=== PATIENT | male | born 1960 | race Caucasian/White ===

== ENCOUNTER 2018-05-23 12:32 | Outpatient (CLI) | payer OTHER ==
[~2018-05-23] VITALS: Ht 190.5 cm; Wt 136.4 kg
--- NOTE | ~2018-05-23 | HEMODYNAMI ---
PATIENT:GLENIS MERRILL MEDICAL RECORD: [id number] : 58 LOCATION:[facility] ADMISSION DATE: 05/23/18 Generatedon:05/23/201816:07 Patient name: GLENIS MERRILL Patient #: [id number] SSN: : 1960 Date of study: 05/23/2018 Page: Of Hemodynamic Procedure Report Patient Data Patient Demographics Procedure consent was obtained First Name: GLENIS Gender: Male Last Name: DESIRAE : 1960 Patient #: [id number] Age: 57 year(s) Race: Unknown Additional ID: [id number] Contact details Address: [address] [place] [address] State: [place] City: [facility] Zip code: [address] Past Medical History Allergies Allergen Reaction Date Comments Reported Shellfish 05/23/2018 Morphine 05/23/2018 Admission Admission Data Admission Date: 05/23/2018 Admission Time: 12:32 Procedure Procedure Types Cath Procedure Diagnostic Procedure LHC LHC w/Coronaries FFR/IVUS Intra-Coronary IVUS Initial Sedation Charges Moderate Sedation up to 15 minutes PCI Procedure Coronary Stent Coronary Stent Initial Procedure Description Procedure Date Procedure Date: 05/23/2018 Procedure Start Time: 15:44 Procedure End Time: 16:06 Procedure Staff Name Function Ellis Colvin MD Performing Physician Lexi Carver RT Monitor Taylor Felipe RN Nurse Osman Mccloud RT Scrub Procedure Data Cath Procedure Fluoroscopy Diagnostic fluoroscopy Total fluoroscopy Time: 5.2 time: 5.2 min min Diagnostic fluoroscopy Total fluoroscopy dose: dose: 1139 mGy 1139 mGy Contrast Material Contrast Material Type Amount (ml) Isovue 300 96 Entry Location Entry Primary Successful Side Size Upsize Upsize Entry Closure Gutierrez ccessful Closure Location (Fr) 1 (Fr) 2 (Fr) Remarks Device Remarks Radial Right 6 Fr Mechanical artery Short Compression Estimated blood loss: 10 ml Diagnostic catheters Device Type Used For End Catheter Placement DIAGNOSTIC [place] 110cm 5 LV Angiography Fr catheter ([id number]) DIAGNOSTIC [place] 110cm 5 Right Coronary Fr catheter ([id number]) Angiography Procedure Complications No complications Procedure Medications Medication Administration Route Dosage 0.9% NaCl I.V. 100 ml/hr Oxygen etCO2 Nasal cannula 2 l/min Lidocaine 2% added to field 20 Heparin Flush Bag added to field 2 bags (1000units/500ml NS) Radial Cocktail added to field 1 syringe (Verapomil 2mg/Nitro 400mcg/Heparin 1500units) Versed I.V. 2 mg Fentanyl I.V. 50 mcg Versed I.V. 2 mg Fentanyl I.V. 50 mcg Radial Cocktail added to field 1 syringe (Verapomil 2mg/Nitro 400mcg/Heparin 1500units) Radial Cocktail added to field 1 syringe (Verapomil 2mg/Nitro 400mcg/Heparin 1500units) Heparin Bolus I.V. 1000 units Hemodynamics Rest Heart Rate: 58 (bpm) Snapshots Pre Cath Intra NCS Post Cath Vital Signs Time Heart Resp SPO2 etCO2 NIBP (mmHg) Rhythm Pain Sedation Rate (ipm) (%) (mmHg) Status Level (bpm) 15:19:35 57 13 99 25.6 166/95(144) NSR 0 (11) 10(A) , No pain 15:23:57 64 11 98 27.8 155/90(120) NSR 0 (11) 10(A) , No pain 15:28:13 61 11 96 28.6 147/88(133) NSR 0 (11) 10(A) , No pain 15:32:27 58 11 98 32.4 150/93(122) NSR 0 (11) 10(A) , No pain 15:36:43 60 12 97 38 151/88(128) NSR 0 (11) 10(A) , No pain 15:41:03 60 12 98 39.9 150/85(113) NSR 0 (11) 10(A) , No pain 15:45:19 59 15 96 33.1 152/94(126) NSR 0 (11) 10(A) , No pain 15:49:33 65 14 98 33 132/76(106) NSR 0 (11) 9(A) , No pain 15:53:43 67 16 99 10.5 133/80(109) NSR 0 (11) 9(A) , No pain 15:57:55 70 18 97 28.6 123/83(97) NSR 0 (11) 9(A) , No pain 16:02:05 62 18 97 33.2 138/79(106) NSR 0 (11) 10(A) , No pain 16:06:19 58 17 96 33.9 131/86(112) NSR 0 (11) 10(A) , No pain Medications Time Medication Route Dose Verified Delivered Reason Not es Effectiveness by by 15:18:31 0.9% NaCl I.V. 100 Ellis Taylor used for ml/hr Marii Felipe healthcare market consultant 15:18:37 Oxygen etCO2 2 l/min Ellis Taylor used for Nasal Marii Felipe procedure cannula RN 15:18:41 Lidocaine 2% added 20ml Ellis Ellis for local to vial Marii Colvin MD anesthetic field 15:18:46 Heparin Flush added 2 bags Ellis Ellis used for Bag to Marii Colvin MD procedure (1000units/500ml field NS) 15:18:51 Radial Cocktail added 1 Ellis Ellis used for (Verapomil to syringe Marii Colvin MD procedure 2mg/Nitro field 400mcg/Heparin 1500units) 15:41:54 Versed I.V. 2 mg Ellis Taylor for sedation Marii Felipe RN 15:42:00 Fentanyl I.V. 50 mcg Ellis Taylor for sedation Mairi Felipe RN 15:47:27 Versed I.V. 2 mg Ellis Taylor for sedation Marii Felipe RN 15:47:31 Fentanyl I.V. 50 mcg Ellis Taylor for sedation Marii Felipe RN 15:49:59 Radial Cocktail added 1 Ellis Taylor used for (Verapomil to syringe Marii Felipe procedure 2mg/Nitro field RN 400mcg/Heparin 1500units) 15:56:16 Heparin Bolus I.V. 1000 Ellis Taylor for dorota ified units Marii Felipe anticoagulation with Dr. HANNAH Colvin 15:56:17 Radial Cocktail added 1 Ellis Taylor used for (Verapomil to syringe Marii Felipe procedure 2mg/Nitro field RN 400mcg/Heparin 1500units) Procedure Log Time Note 14:27:26 Time tracking: Regular hours (M-F 7:00 - 5:00) 14:27:30 Plan of Care:Hemodynamics will remain stable., Cardiac rhythm will remain stable., Comfort level will be maintained., Respiratory function will remain adequate., Patient/ family verbilizes understanding of procedure., Procedure tolerated without complication., Recovers from procedure without complications.. 15:00:35 Lexi Carver RT(R) sent for patient. Start room use. 15:11:44 Patient received from ED to CCL 2 Alert and oriented. Tansferred to table in Supine position. 15:11:45 Warm blankets applied, and kenan hugger turned on for patient comfort. 15:11:46 Correct patient and procedure confirmed by team. 15::47 Signed procedure consent form obtained from patient. 15::47 ECG and BP/O2 sat monitors applied to patient. 15::48 Pre-procedure instructions explained to patient. 15:11:48 Pre-op teaching completed and patient verbalized understanding. 15:18:21 Vital chart was started 15:18:31 0.9% NaCl 100 ml/hr I.V. was administered by Taylor Felipe RN; used for procedure; 15:18:37 Oxygen 2 l/min etCO2 Nasal cannula was administered by Taylor Felipe RN; used for procedure; 15:18:41 Lidocaine 2% 20ml vial added to field was administered by Ellis Colvin MD; for local anesthetic; 15:18:46 Heparin Flush Bag (1000units/500ml NS) 2 bags added to field was administered by Ellis Colvin MD; used for procedure; 15:18:51 Radial Cocktail (Verapomil 2mg/Nitro 400mcg/Heparin 1500units) 1 syringe added to field was administered by Ellis Colvin MD; used for procedure; 15:22:32 Baseline sample Acquired. 15:22:35 Rhythm: sinus bradycardia 15:22:37 Full Disclosure recording started 15:22:42 H&P Date Dictated: 05/23/2018 ER History on chart.. 15:22:45 Family in waiting room. 15:22:46 Patient NPO since Midnight. 15:22:51 Patient allergic to Shellfish 15:23:00 Patient allergic to Morphine 15:23:08 Is the patient allergic to Iodine/contrast media? Yes. 15:23:09 Was the patient premedicated? Yes 15:23:10 Is patient on blood thinner?No 15:23:12 Patient diabetic? Yes. 15:23:13 If diabetic: On Metformin? No 15:23:16 Previous problem with sedation/anesthesia? No ? 15:23:16 Snore? Yes 15:23:17 Sleep apnea? No 15:23:18 Deviated septum? No 15:23:19 Opens mouth fully? Yes 15:23:20 Sticks out tongue? Yes 15:23:21 Airway obstruction? No ? 15:23:23 Dentures? No ? 15:23:25 Pre procedure: right dorsailis pedis pulse 2+ Normal; easily identifiable; not easily obliterated 15:23:27 Modified Jordan's test Ulnar < 7 seconds 15:23:28 Patient pain scale 0/10 ?. 15:23:36 IV patent on arrival in left antecubital with 0.9% NaCl at [facility]. 15:23:38 Lab results completed and on chart. 15:23:41 Right Radial & Right Groin area was prepped with chlora-prep and draped in sterile fashion 15:23:43 Alarms reviewed by R. N. 15:23:43 Sharps counted by scrub and verified by R.N. 15:23:47 Use device set Radial Dx or PCI 15:23:48 ACIST Syringe (56090) opened to sterile field. 15:23:48 Medline Cath Pack ([id number]) opened to sterile field. 15:23:49 Bag Decanter (2002S) opened to sterile field. 15:23:49 DIAGNOSTIC WIRE .035 260cm J wire (390181) opened to sterile field. 15:23:49 ACIST Hand Control (06643) opened to sterile field. 15:23:50 ACIST Manifold (03519) opened to sterile field. 15:23:50 Tegaderm 4 x 4 (1626W) opened to sterile field. 15:23:51 MBrace Wrist Support ([id number]) opened to sterile field. 15:23:52 SHEATH 6FR Slender (801060) opened to sterile field. 15:29:31 Zero performed for pressure channel P1 15:30:23 Physician paged 15:41:20 Final Timeout: patient, procedure, and site verified with staff and physician. All members of the team are in agreement. 15:41:22 Right Radial & Right Groin site verified by team. 15:41:25 Maximum allowable Isovue 300 dose 300ml. Physician notified. (300ml for normal creatinines. For patients with creatinine of 1.7 or higher multiply weight(kg) x 5 divided by creatinine.) 15:41:28 Fire Safety Assessment: A--An alcohol-based skin anteseptic being used preoperatively., C--Open oxygen or nitrous oxide is being used., D--An ESU, laser, or fiber-optic light is being used. 15:41:31 Physical assessment completed. ASA score P 2 - A patient with mild systemic disease as per Ellis Colvin MD. 15:41:34 Sedation plan: IV Moderate Sedation Medication:Versed, Fentanyl 15:41:54 Versed 2 mg I.V. was administered by Taylor Felipe RN; for sedation; 15:42:00 Fentanyl 50 mcg I.V. was administered by Taylor Felipe RN; for sedation; 15:43:31 Procedure started. 15:44:36 Local anesthetic to right radial artery with Lidocaine 2% by Ellis Colvin MD.INITIAL ACCESS ONLY 15:45:59 A 6 Fr Short sheath was inserted into the Right Radial artery 15:46:32 A DIAGNOSTIC [place] 110cm 5 Fr catheter (160652) was advanced over the wire and used for LV Angiography. 15:47:18 LV gram done using MANN 15:47:27 Versed 2 mg I.V. was administered by Taylor Felipe RN; for sedation; 15:47:27 LV hemodynamics recorded. 15:47:29 Injector settings: Ml/sec: 5, Volume: 15, 15:47:31 Fentanyl 50 mcg I.V. was administered by Taylor Felipe RN; for sedation; 15:47:34 EF : 55 % 15:48:29 A DIAGNOSTIC [place] 110cm 5 Fr catheter (430878) was advanced over the wire and used for Right Coronary Angiography. 15:48:42 Catheter removed. 15:48:48 Use device set [facility] PCI 15:48:56 INFLATOR Merit BasixCompak (GE1728) opened to sterile field. 15:49:08 CHOICE PT Extra Support 182cm wire ([id number]) opened to sterile field. 15:49:59 Radial Cocktail (Verapomil 2mg/Nitro 400mcg/Heparin 1500units) 1 syringe added to field was administered by Taylor Felipe RN; used for procedure; 15:50:49 6 Fr XB 3.5 guide catheter was inserted over the wire 15:50:58 GUIDE 6FR XB 3.5 catheter ([id number]) opened to sterile field. 15:51:27 Guide Catheter removed. unable to cannulate vessel. 15:52:10 GUIDE 6FR XBC 3 (33269572) opened to sterile field. 15:52:20 6 Fr XBC 3 guide catheter was inserted over the wire 15:53:47 LCA angiography performed. 15:54:17 Guide catheter removed. 15:54:27 GUIDE 6FR AR 2.0 catheter ([id number]) opened to sterile field. 15:56:16 Heparin Bolus 1000 units I.V. was administered by Taylor Felipe RN; for anticoagulation; verified with Dr. Colvin 15:56:17 Radial Cocktail (Verapomil 2mg/Nitro 400mcg/Heparin 1500units) 1 syringe added to field was administered by Taylor Felipe RN; used for procedure; 15:56:28 6 Fr AR 1.0 guide catheter was inserted over the wire 15:57:23 CHOICE PT ES wire advanced. 15:57:48 IVUS catheter advanced over wire. 15:57:54 IVUS pass to RCA lesion performed. 15:59:27 IVUS catheter removed over wire. 16:01:59 Place stent Inflation Number: 1 A INTEGRITY 4.0 x 18 stent ([id number]) was prepped and advanced across the Mid RCA. The stent was deployed at 11 JED for 0:08 (min:sec). 16:02:19 Stent catheter was removed intact over wire. 16:02:19 Wire removed. 16:02:20 Guide catheter removed. 16:02:29 Sheath removed intact; hemostasis achieved with Mechanical Compression to the Right Radial artery. 16:02:31 Procedure ended.(Physican Out) 16:02:45 Fluoroscopy time 05.20 minutes. 16:02:48 Fluoroscopy dose: 1139 mGy 16:02:48 Flurop Dose total: 1139 16:02:51 Contrast amount:Isovue 300 96ml. 16:02:52 Sharps counted by scrub and verified by R.N. 16:02:54 TR band inflated with 10cc of air. 16:02:55 Insertion/operative site no bleeding no hematoma. 16:03:03 Post right radial artery:stable, clean and dry 16:03:09 Post Procedure Pulses reassessed and unchanged 16:03:11 Post-procedure physical assessment completed. ASA score P 2 - A patient with mild systemic disease as per Ellis Colvin MD. 16:03:13 Post procedure rhythm: unchanged. 16:03:15 Estimated blood loss: 10 ml 16:03:19 TR BAND Large ([id number]) opened to sterile field. 16:03:22 Post procedure instruction explained to patient.Patient verbalizes understanding. 16:03:22 Patient needs reinforcement of post procedure teaching. 16:03:51 Procedure type changed to Cath procedure, Diagnostic procedure, LHC, LHC w/Coronaries, FFR/IVUS, Intra-Coronary IVUS Initial, Sedation Charges, Moderate Sedation up to 15 minutes, PCI procedure, Coronary Stent, Coronary Stent Initial 16:05:14 Procedure Complication : No complications 16:05:16 See physician's report for complete and final results. 16:06:01 Procedure and supply charges have been captured, reviewed, submitted and are correct. 16:06:02 Vital chart was stopped 16:06:03 Report given to Pre/Post Procedure Room. 16:06:17 Patient transfered to Pre/Post Procedure Room with Stretcher. 16:06:20 Procedure ended. 16:06:20 Full Disclosure recording stopped 16:06:23 End room use (Document Last) Intervention Summary Intervention Notes Time ActionType Lesion and Equipment Action# Pressure Duration Attributes Used 16:01:59 Place stent Mid RCA INTEGRITY 1 11 00:08 4.0 x 18 stent ([id number]) Device Usage Item Name Manufacture Quantity Catalog Number Hospital Part Current Mini mal Lot# / Charge Number Stock Stock Serial# Code ACIST Acist 1 65932 885248 915528 730870 20 Syringe TalkSession (65925) Systems Inc Medline Cath Medline 1 [id number] 334577 14590 235096 5 Pack ([id number]) Bag Decanter Microtek 1 821619 04787 056791 5 () Medical Inc. DIAGNOSTIC [place] 1 721531 800769 889743 794622 30 WIRE .035 260cm J wire (225565) ACIST Hand Acist 1 93540 333495 189658 680755 5 Control Medical (28405) Systems Inc ACIST Acist 1 74012 653312 207938 098871 5 Manifold Medical (57543) Systems Inc Tegaderm 4 x 3M 1 1626W 153369 542005 016319 5 4 (1626W) MBrace Wrist Advanced 1 140-0250-00 203163 50753 894925 5 Support Vascular ([id number]) Dynamics SHEATH 6FR Terumo 1 [id number] 128398 048024 109547 5 Slender (80-1060) DIAGNOSTIC Terumo 1 40-5013 928470 092408 865356 5 [place] 110cm 5 Fr catheter (681166) INFLATOR Merit 1 SN6721 017823 137831 341796 15 [employer] Works Now Medical BasixCompak (ED9680) CHOICE PT [place] 1 [id number] 985316 870462 725416 5 Extra Scientific Support 182cm wire ([id number]) GUIDE 6FR XB Cardinal 1 [id number] 553510 318686 354782 2 3.5 catheter Health (68900769) GUIDE 6FR Cardinal 1 [id number] 544048 69865 797467 5 XBC 3 Health (12376086) GUIDE 6FR AR Medtronic 1 [id number] 574064 50612 226886 1 2.0 catheter (EC5CZ52) INTEGRITY Medtronic 1 [id number] 909690 050663 037334 5 [id number] 4.0 x 18 stent ([id number]) TR BAND Terumo 1 [id number] 568526 136099 829919 40 Large ([id number]) Signature Audit [place] Stage Time Signature Unsigned Intra-Procedure 05/23/2018 Lexi 4:06:56 PM Counts RT(R) Signatures Monitor : Lexi Signature : Counts RT Date : Time : [facility] [address] [place] [address]
--- NOTE | ~2018-05-23 | OP ---
PATIENT NAME: GLENIS MERRILL MEDICAL RECORD: [id number] :58 LOCATION:RC [facility]02 ADMISSION DATE: SURGEON: BHAVESH CORNELIUS MD DATE OF OPERATION: 05/23/2018 PROCEDURES: 1. PTCA and stent, RCA. 2. Intravascular ultrasound. 3. Left heart catheterization. 4. Selective coronary angiography. 5. Left ventriculogram. INDICATION: Angina and coronary artery disease. DESCRIPTION OF PROCEDURE: After informed consent was obtained with detailed description of risks and benefits as well as alternative therapies, the patient elected to proceed with angiogram and angioplasty. The right radial area was prepped and draped in normal sterile fashion. The right radial artery was cannulated via modified Seldinger technique with placement of 6-Kyrgyz sheath. All catheters were exchanged through this sheath. FINDINGS: Left ventriculogram performed in standard 30-degree MANN view reveals good cardiac wall motion throughout all segments. Overall ejection fraction 55% to 60%. SELECTIVE CORONARY ANGIOGRAPHY: 1. Left main is with no significant angiographic disease. 2. Left anterior descending has questionable stenosis of significance in the mid vessel, better delineated by intravascular ultrasound or FFR. 3. Left circumflex has 75% stenosis in the mid vessel. 4. Right coronary has 70% stenosis in the mid vessel, confirmed by intravascular ultrasound. PTCA AND STENT OF THE RCA: Stent used was 4.0 x 18-mm Integrity. Result was 0% residual stenosis. OVERALL IMPRESSION: Successful PTCA and stent of the RCA, going from 70% initial stenosis to 0% residual. PLAN: Plan for PTCA and stent of the left circumflex in the near future. TRANSINT:[id number] Voice Confirmation ID: [id number] DOCUMENT ID: [id number] BHAVESH CORNELIUS MD CC: [id number] DICTATION DATE: 05/23/18 1609 LITIGATION SECRETARY: 05/23/18 1817 [facility] [address] [place] [address]
[2018-05-23 12:39] VITALS: Ht 190.5 cm; Wt 136.4 kg
[2018-05-23] MEDS ORDERED: ZETIA10 MG PO (12:40)
[2018-05-23] MEDS ORDERED: HYDROCODON-ACE1 EA10 PO (12:41)
[2018-05-23] MEDS ORDERED: XELJANZ5 MG PO (12:41)
[2018-05-23] MEDS ORDERED: CYMBALTA30 MG PO (12:42)
[2018-05-23] MEDS ORDERED: CYMBALTA60 MG PO (12:42)
[2018-05-23] MEDS ORDERED: CYCLOBENZAPRINE10 MG PO (12:42)
[2018-05-23] MEDS ORDERED: BAYER CHEWABLE81 MG PO (12:44)
[2018-05-23] MEDS ORDERED: TIROSINT125 MCG PO (12:49)
[2018-05-23] MEDS ORDERED: VALIUM 2 MG TAB2 MG PO (12:49)
[2018-05-23 13:29] LABS: BASOPHILS 0.3 % (0-2); EOSINOPHILS 0.6 % (0-7); HEMATOCRIT 40.3 % (42.0-54.0); HEMOGLOBIN 13.9 g/dL (13.5-17.5); IMMATURE GRANULOCYTES 0.4 % (0-5); LYMPHOCYTES 20.1 % (15-50); MCH 32.6 pg (26.0-34.0); MCHC 34.5 g/dL (31.0-37.0); MCV 94.4 fL (80.0-100.0); MEAN PLATELET VOLUME 11.9 fL (7.4-10.4); MONOCYTES 6.4 % (2-11); NEUTROPHILS 72.2 % (40-80); PLATELET COUNT 140 10x3/uL (130-400); RBC 4.27 10x6/uL (4.20-6.10); RDW 14.2 % (11.5-14.5); WBC 9.7 10x3/uL (4.8-10.8)
[2018-05-23 13:45] LABS: ALBUMIN 3.9 g/dL (3.4-5.0); ALKALINE PHOSPHATASE 40 U/L (46-116); ALT (SGPT) 53 U/L (10-68); CALC OSMOLALITY 286 mosm/kg (275-300); CALCIUM 8.3 mg/dL (8.5-10.1); CARBON DIOXIDE 25.4 mmol/L (21.0-32.0); CHLORIDE - SERUM 104 mmol/L (98-107); CREATININE - SERUM 0.9 mg/dL (0.6-1.3); GLUCOSE 125 mg/dL (74-106); POTASSIUM - SERUM 3.8 mmol/L (3.5-5.1); PROTEIN - SERUM 6.8 g/dL (6.4-8.2); SODIUM 142 mmol/L (136-145); UREA NITROGEN 20 mg/dL (7-18); eGFR NON AFRICAN AMERICAN > 90 mL/min (90-120)
[2018-05-23 13:54] LABS: CKMB 5.9 U/L (0.0-3.6); CREATINE KINASE 200 UL (21-232); PRO BNP 314 pg/mL (0-125); TROPONIN-I 0.017 ng/mL (0.000-0.060)
[2018-05-23 15:08] VITALS: BP 141/99
--- NOTE | 2018-05-23 16:06 | CN ---
PATIENT NAME:GLENIS MERRILL MEDICAL RECORD: [id number] : 58 LOCATION:D.CAT ADMIT DATE: ACCOUNT: [id number] CONSULTING PHYSICIAN: BHAVESH CORNELIUS MD REFERRING PHYSICIAN: BHAVESH CORNELIUS MD DATE OF CONSULTATION: 05/23/2018 ADMITTING DIAGNOSES: 1. Angina. 2. Coronary artery disease. 3. Hyperlipidemia. HISTORY OF PRESENT ILLNESS: This is a gentleman with a past history of cardiac catheterization in 2005. At that time, he was told he had mild coronary disease who now presents with chest pain. He has felt short of breath all weekend. The chest pain that started today is going to his jaw. The jaw pain is actually up to a 10/10, chest pain is at a 5/10. He has no acute ST-T abnormalities on his EKG. PHYSICAL EXAMINATION: GENERAL APPEARANCE: Well-nourished, well-developed, appears stated age. Level of distress, comfortable. PSYCHIATRIC: Mental status, alert, normal affect. Orientation, oriented to time, place and person. EYES: Lids and conjunctiva, noninjected. No discharge, no pallor. ENT: Lips, teeth, gums, normal dentition. Oropharynx, no cyanosis, no pallor. NECK: Carotid arteries, bilateral normal upstroke, no bruits, no thrills. JUGULAR VEINS: No jugular venous pressure or distention. CERVICAL LYMPH NODES: Nontender, nonenlarged. THYROID: Not enlarged. Nontender. No nodules. LUNGS: Respiratory effort, unlabored. CHEST: Normal curvature. No thoracic deformity. No chest wall tenderness. Percussion, resonant. Auscultation, clear. No wheezes, no rales, no rhonchi. CARDIOVASCULAR: Precordial exam, nondisplaced. No heaves or pericardial thrills. Rate and rhythm, regular. Heart sounds, normal S1, normal S2. No S3, no gallop, no rub. Systolic murmur, not heard. Diastolic murmur, not heard. EXTREMITIES: No cyanosis, no edema. Peripheral pulses, full and equal in all extremities, except as noted. No bruits appreciated. ABDOMEN: Soft, nondistended. Normal aorta. No bruit. Nontender. No masses. Liver, nontender, no hepatomegaly. Spleen, nontender, no splenomegaly. MUSCULOSKELETAL: No joint tenderness. No joint swelling. No erythema. NEUROLOGICAL: Normal gait, normal strength, normal tone. SKIN: Warm and dry. OVERALL IMPRESSION: Chest pain compatible with angina, most likely this is hemodynamically significant coronary artery disease. We will proceed with coronary angiography later this afternoon premedicated with contrast allergy. TRANSINT:[id number] Voice Confirmation ID: [id number] DOCUMENT ID: [id number] CONSULT REPORT [id number] GLENIS MERRILL, BHAVESH TAPIA at 1606 CC: [id number] DICTATION DATE: 05/23/18 1304 REGISTERED DENTAL ASSISTANT RDA: 05/23/18 1316 REG [facility] [address] [place] [address]
[2018-05-23] MEDS ORDERED: PLAVIX75 MG PO (16:24)
== END 2018-05-23 19:58 | disposition home or self-care (01) ==
LOC: D.ER 12:32 → D.CATH 12:32 → EDSTATUS 14:00 → D.CLR 16:20 → D.CATH 19:58
PROVIDERS: Family Medicine; ATTEND Internal Medicine Interventional Cardiology
DX: I25.119 Atherosclerotic heart disease of native coronary artery with unspecified angina pectoris (principal); E78.5 Hyperlipidemia, unspecified; Z01.812 Encounter for preprocedural laboratory examination

== ENCOUNTER 2018-05-25 07:56 | Outpatient (CLI) | payer OTHER ==
[~2018-05-25] VITALS: Ht 190.5 cm; Wt 136.4 kg
--- NOTE | ~2018-05-25 | HEMODYNAMI ---
PATIENT:GLENIS MERRILL MEDICAL RECORD: [id number] : 58 LOCATION:[facility] ADMISSION DATE: 05/25/18 Generatedon:05/25/20189:58 Patient name: GLENIS MERRILL Patient #: [id number] SSN: : 1960 Date of study: 05/25/2018 Page: Of Hemodynamic Procedure Report Patient Data Patient Demographics Procedure consent was obtained First Name: GLENIS Gender: Male Last Name: DESIRAE : 1960 Middle Initial: NEREYDA Viramontes Age: 57 year(s) Patient #: [id number] Race: Unknown Additional ID: [id number] Contact details Address: [address] [place] [address] State: [place] City: [facility] Zip code: [address] Past Medical History Allergies Allergen Reaction Date Comments Reported Shellfish 05/23/2018 Morphine 05/23/2018 Other allergy 05/25/2018 SHELLFISH, IV DYE, MORPHINE Admission Admission Data Admission Date: 05/25/2018 Admission Time: 7:56 Lab Results Lab Result Date: 05/25/2018 Lab Result Time: 0:00 Biochemistry Name Units Result Min Max BUN mg/dl 22 --(----)-* 7 18 Creatinine mg/dl 0.9 --(-*--)-- 0.6 1.3 CBC Name Units Result Min Max Hematocrit % 40.5 -*(----)-- 42 54 Hemoglobin g/dl 14.1 --(*---)-- 13.5 17.5 Procedure Procedure Types Cath Procedure Diagnostic Procedure FFR/IVUS Intra-Coronary IVUS Initial Intra-Coronary IVUS Additional PCI Procedure Coronary Stent Coronary Stent Initial x2 Procedure Description Procedure Date Procedure Date: 05/25/2018 Procedure Start Time: 9:39 Procedure End Time: 9:56 Procedure Staff Name Function Ellis Colvin MD Performing Physician Evy Barr RT Monitor Shady Natarajan RT Scrub Taylor Felipe RN Nurse Hernan Schwartz RN Mining Engineer Procedure Data Cath Procedure Fluoroscopy Diagnostic fluoroscopy Total fluoroscopy Time: 4.6 time: 4.6 min min Diagnostic fluoroscopy Total fluoroscopy dose: 571 dose: 571 mGy mGy Contrast Material Contrast Material Type Amount (ml) Isovue 300 122 Entry Location Entry Primary Successful Side Size Upsize Upsize Entry Closure Succes sful Closure Location (Fr) 1 (Fr) 2 (Fr) Remarks Device Remarks Femoral Right 6 Fr Exoseal artery Short Estimated blood loss: 10 ml Procedure Complications No complications Procedure Medications Medication Administration Route Dosage 0.9% NaCl I.V. 100 ml/hr Oxygen etCO2 Nasal cannula 2 l/min Lidocaine 2% added to field 20 Heparin Flush Bag added to field 2 bags (1000units/500ml NS) Versed I.V. 2 mg Fentanyl I.V. 50 mcg Versed I.V. 2 mg Fentanyl I.V. 50 mcg Heparin Bolus I.V. 4000 units Versed I.V. 2 mg Fentanyl I.V. 50 mcg Hemodynamics Rest Pre Cath Intra NCS Post Cath Vital Signs Time Heart Resp SPO2 etCO2 NIBP (mmHg) Rhythm Pain Sedation Rate (ipm) (%) (mmHg) Status Level (bpm) 9:11:36 53 16 98 31 163/96(148) SB 0 (11) 10(A) , No pain 9:16:03 55 16 100 34.1 172/99(144) SB 0 (11) 10(A) , No pain 9:20:23 52 16 97 34.1 157/95(135) SB 0 (11) 10(A) , No pain 9:24:47 54 18 97 34.9 159/95(138) SB 0 (11) 10(A) , No pain 9:29:11 57 10 95 38.6 162/96(135) SB 0 (11) 10(A) , No pain 9:33:38 55 11 98 34.9 159/100(137) SB 0 (11) 10(A) , No pain 9:38:04 64 10 98 40.2 170/103(140) NSR 0 (11) 10(A) , No pain 9:42:32 58 12 97 44 165/95(111) SB 0 (11) 10(A) , No pain 9:47:01 73 13 96 40.7 173/103(144) NSR 0 (11) 9(A) , No pain 9:51:33 72 18 97 25.7 173/101(134) NSR 0 (11) 10(A) , No pain 9:56:05 70 11 97 37.2 168/101(137) NSR 0 (11) 10(A) , No pain Medications Time Medication Route Dose Verified Delivered Reason Notes Effectiveness by by 9:21:39 0.9% NaCl I.V. 100 Ellis Taylor used for ml/hr Marii Felipe retail sales manager 9:22:11 Oxygen etCO2 2 Ellis Taylor used for Nasal l/min Marii Felipe procedure cannula RN 9:22:21 Lidocaine 2% added 20ml Ellis Ellis for local to vial Marii Colvin MD anesthetic field 9:22:27 Heparin Flush added 2 Ellis Ellis used for Bag to bags Marii Colvin MD procedure (1000units/500ml field NS) 9:35:50 Versed I.V. 2 mg Ellis Taylor for sedation Marii Felipe RN 9:35:55 Fentanyl I.V. 50 Ellis Taylor for sedation mcg Marii Felipe RN 9:40:01 Versed I.V. 2 mg Ellis Taylor for sedation Marii Felipe RN 9:40:04 Fentanyl I.V. 50 Ellis Taylor for sedation mcg Marii Felipe RN 9:44:44 Heparin Bolus I.V. 4000 Ellis Taylor for verifi ed units Marii Felipe anticoagulation with Dr HANNAH Colvin 9:45:05 Versed I.V. 2 mg Ellis Taylor for sedation Marii Felipe RN 9:45:09 Fentanyl I.V. 50 Ellis Taylor for sedation mcg Marii Felipe RN Procedure Log Time Note 8:55:41 Hernan Schwartz RN sent for patient. Start room use. 9:02:42 Diagnostic Cath status Elective 9:02:42 Time tracking: Regular hours (M-F 7:00 - 5:00) 9:02:46 Plan of Care:Hemodynamics will remain stable., Cardiac rhythm will remain stable., Comfort level will be maintained., Respiratory function will remain adequate., Patient/ family verbilizes understanding of procedure., Procedure tolerated without complication., Recovers from procedure without complications.. 9:02:47 Signed procedure consent form obtained from patient. 9:04:08 Patient received from Pre/Post Procedure Room to CCL 1 Alert and oriented. Tansferred to table in Supine position. 9:04:09 Warm blankets applied, and kenan hugger turned on for patient comfort. 9:04:10 Correct patient and procedure confirmed by team. 9:04:11 ECG and BP/O2 sat monitors applied to patient. 9:10:23 Vital chart was started 9:10:33 Rhythm: sinus bradycardia 9:10:34 Full Disclosure recording started 9:10:36 Pre-procedure instructions explained to patient. 9:10:36 Pre-op teaching completed and patient verbalized understanding. 9:10:38 Family in patients room. 9:10:39 Patient NPO since Midnight. 9:11:02 Patient allergic to Other allergySHELLFISH, IV DYE, MORPHINE 9:11:04 Is the patient allergic to Iodine/contrast media? Yes. 9:11:05 Is patient on blood thinner?Yes 9:11:08 ACC The patient was administered the following blood thiners within the last 24 hours: ACCPlavix 9:11:11 Patient diabetic? Yes. 9:11:12 If diabetic: On Metformin? No 9:11:15 Previous problem with sedation/anesthesia? No ? 9:11:15 Snore? Yes 9:11:31 Sleep apnea? No 9:11:32 Deviated septum? No 9:11:33 Opens mouth fully? Yes 9:11:33 Sticks out tongue? Yes 9:11:35 Airway obstruction? No ? 9:11:37 Dentures? No ? 9:11:40 Pre procedure: right dorsailis pedis pulse 2+ Normal; easily identifiable; not easily obliterated 9:11:44 Patient pain scale 0/10 ?. 9:11:47 IV patent on arrival in left hand with 0.9% NaCl at KVO. 9:12:26 Lab results completed and on chart. 9:12:29 Right groin area was prepped with chlora-prep and draped in sterile fashion 9:12:35 Alarms reviewed by R. N. 9:12:35 Sharps counted by scrub and verified by R.N. 9:13:08 Lab Result : BUN 22 mg/dl 9:13:08 Lab Result : Creatinine 0.9 mg/dl 9:13:08 Lab Result : Hemoglobin 14.1 g/dl 9:13:08 Lab Result : Hematocrit 40.5 % 9:13:15 Use device set CATH PACK 9:13:16 ACIST Syringe (17906) opened to sterile field. 9:13:16 ACIST Hand Control (78868) opened to sterile field. 9:13:17 ACIST Manifold (77987) opened to sterile field. 9:13:17 Medline Cath Pack ([id number]) opened to sterile field. 9:13:17 Bag Decanter (2002S) opened to sterile field. 9:13:18 DIAGNOSTIC WIRE .035 260cm J wire (303735) opened to sterile field. 9:13:43 SHEATH 6FR [place] (LAK115) opened to sterile field. 9:13:43 INFLATOR Merit BasixCompak ([id number]) opened to sterile field. 9:13:43 CHOICE PT Extra Support 182cm wire ([id number]) opened to sterile field. 9:13:44 [place] IVUS Catheter (42281Z) opened to sterile field. 9:13:44 GUIDE 6FR XBLAD 4.0 catheter ([id number]) opened to sterile field. 9:21:39 0.9% NaCl 100 ml/hr I.V. was administered by Taylor Felipe RN; used for procedure; 9:22:11 Oxygen 2 l/min etCO2 Nasal cannula was administered by Taylor Felipe RN; used for procedure; 9:22:21 Lidocaine 2% 20ml vial added to field was administered by Ellis Colvin MD; for local anesthetic; 9:22:27 Heparin Flush Bag (1000units/500ml NS) 2 bags added to field was administered by Ellis Colvin MD; used for procedure; 9:35:27 H&P Date Dictated: 05/25/2018 New H&P dictated by physician.. 9:35:30 --------ALL STOP TIME OUT------ 9:35:30 Final Timeout: patient, procedure, and site verified with staff and physician. All members of the team are in agreement. 9:35:32 Right groin site verified by team. 9:35:35 Maximum allowable Isovue 300 dose 300ml. Physician notified. (300ml for normal creatinines. For patients with creatinine of 1.7 or higher multiply weight(kg) x 5 divided by creatinine.) 9:35:38 Fire Safety Assessment: A--An alcohol-based skin anteseptic being used preoperatively., C--Open oxygen or nitrous oxide is being used., D--An ESU, laser, or fiber-optic light is being used. 9:35:46 Physical assessment completed. ASA score P 2 - A patient with mild systemic disease as per Ellis Colvin MD. 9:35:48 Sedation plan: IV Moderate Sedation Medication:Versed, Fentanyl 9:35:50 Versed 2 mg I.V. was administered by Taylor Felipe RN; for sedation; 9:35:52 Zero performed for pressure channel P1 9:35:55 Fentanyl 50 mcg I.V. was administered by Taylor Felipe RN; for sedation; 9:39:41 Procedure started. 9:39:46 Local anesthetic to right femoral artery with Lidocaine 2% by Ellis Colvin MD.INITIAL ACCESS ONLY 9:40:01 Versed 2 mg I.V. was administered by Taylor Felipe RN; for sedation; 9:40:04 Fentanyl 50 mcg I.V. was administered by Taylor Felipe RN; for sedation; 9:41:05 A 6 Fr Short sheath was inserted into the Right Femoral artery 9:42:08 6 Fr XBLAD 4 guide catheter was inserted over the wire 9:43:25 CHOICE ES 182 wire advanced. 9:43:42 Wire advanced across lesion. 9:44:44 Heparin Bolus 4000 units I.V. was administered by Taylor Felipe RN; for anticoagulation; verified with Dr Colvin 9:45:05 Versed 2 mg I.V. was administered by Taylor Felipe RN; for sedation; 9:45:09 Fentanyl 50 mcg I.V. was administered by Taylor Felipe RN; for sedation; 9:45:26 IVUS catheter advanced over wire. 9:45:28 IVUS pass to LAD lesion performed. 9:45:29 IVUS catheter removed over wire. 9:46:58 Inflate balloon Inflation number: 1 A INTEGRITY RX 2.5 x 18 stent ([id number]) was prepped and advanced across the Mid LAD, then inflated to 17 JED for 0:10 (min:sec). 9:47:14 Stent catheter was removed intact over wire. 9:47:20 Wire redirected to CIRC. 9:48:08 IVUS catheter advanced over wire. 9:48:11 IVUS pass to Circ lesion performed. 9:48:49 IVUS catheter removed over wire. 9:51:37 Place stent Inflation Number: 1 A INTEGRITY RX 3.5 x 30 stent ([id number]) was prepped and advanced across the Mid CX. The stent was deployed at 11 JED for 0:10 (min:sec). 9:51:46 Stent catheter was removed intact over wire. 9:51:46 Wire removed. 9:51:47 Guide catheter removed. 9:51:54 EXOSEAL 6Fr (EX600) opened to sterile field. 9:52:12 Sheath removed intact; hemostasis achieved with Exoseal to the Right Femoral artery. 9:52:22 Procedure ended.(Physican Out) 9:54:10 Fluoroscopy time 04.60 minutes. 9:54:13 Fluoroscopy dose: 571 mGy 9:54:26 Flurop Dose total: 571 9:54:30 Contrast amount:Isovue 300 122ml. 9:54:32 Sharps counted by scrub and verified by R.N. 9:54:34 Post-op/insertion site Right Femoral artery dressed using a 4 x 4 and Tegaderm. 9:54:36 Post-procedure physical assessment completed. ASA score P 2 - A patient with mild systemic disease as per Ellis Colvin MD. 9:54:41 Post procedure rhythm: sinus rhythm 9:54:44 Estimated blood loss: 10 ml 9:54:57 Post procedure instruction explained to patient.Patient verbalizes understanding. 9:54:57 Patient needs reinforcement of post procedure teaching. 9:55:21 Procedure type changed to Cath procedure, Diagnostic procedure, FFR/IVUS, Intra-Coronary IVUS Initial, Intra-Coronary IVUS Additional, PCI procedure, Coronary Stent, Coronary Stent Initial x2 9:56:21 Procedure and supply charges have been captured, reviewed, submitted and are correct. 9:56:26 Procedure Complication : No complications 9:56:28 Vital chart was stopped 9:56:28 See physician's report for complete and final results. 9:56:30 Report given to Pre/Post Procedure Room. 9:56:32 Patient transfered to Pre/Post Procedure Room with Bed. 9:56:34 Procedure ended. 9:56:34 Full Disclosure recording stopped 9:56:37 End room use (Document Last) Intervention Summary Intervention Notes Time ActionType Lesion and Equipment Action# Pressure Duration Attributes Used 9:46:58 Inflate Mid LAD INTEGRITY RX 1 17 00:10 balloon 2.5 x 18 stent ([id number]) 9:51:37 Place stent Mid CX INTEGRITY RX 1 11 00:10 3.5 x 30 stent ([id number]) Device Usage Item Name Manufacture Quantity Catalog Number Hospital Part Current Mini mal Lot# / Charge Number Stock Stock Serial# Code ACIST Acist 1 85707 821048 849958 996676 20 Syringe Medical (31897) Systems Inc ACIST Hand Acist 1 45843 063401 244813 062266 5 Control Medical (71082) Systems Inc ACIST Acist 1 21137 199572 497986 269930 5 Manifold Medical (14488) Systems Inc Medline Cath Medline 1 [id number] 119070 44916 899123 5 Pack ([id number]) Bag Decanter Microtek 1 2001S 691650 09632 203186 5 (2001S) Medical Inc. DIAGNOSTIC [place] 1 447362 221340 540110 892437 30 WIRE .035 260cm J wire (100191) SHEATH 6FR [place]um[place] 1 TCR315 909626 422276 285711 40 [place] (JBZ614) INFLATOR Merit 1 DW8697 546648 334487 488080 15 [facility] Medical BasixCompak (TY3283) CHOICE PT [place] 1 [id number] 118201 635069 267335 5 Extra Scientific Support 182cm wire ([id number]) [place] 1 52780Y 037845 549922 721495 8 [place] IVUS Catheter (69346R) GUIDE 6FR Cardinal 1 [id number] 430391 774187 291875 3 XBLAD 4.0 Health catheter (46343928) INTEGRITY RX Medtronic 1 [id number] 589220 272133 341590 5 [id number] 2.5 x 18 stent ([id number]) INTEGRITY RX Medtronic 1 [id number] 535120 511273 243358 5 [id number] 3.5 x 30 stent ([id number]) EXOSEAL 6Fr Cardinal 1 EX600 013895 921062 307376 10 (EX600) Health Signature Audit [place] Stage Time Signature Unsigned Intra-Procedure 05/25/2018 Evy Barr 9:57:57 AM RT(R) Signatures Monitor : Evy Barr Signature : RT Date : Time : [id number] [place] [address]
[~2018-05-25 07:56] MED LIST: BAYER CHEWABLE81 MG PO; CYCLOBENZAPRINE10 MG PO; CYMBALTA30 MG PO; CYMBALTA60 MG PO; HYDROCODON-ACE1 EA10 PO; PLAVIX75 MG PO; TIROSINT125 MCG PO; VALIUM 2 MG TAB2 MG PO; XELJANZ5 MG PO; ZETIA10 MG PO
[2018-05-25] MEDS ORDERED: BISOPROLOL PO (08:25)
[2018-05-25] MEDS ORDERED: VALIUM10 MG PO (08:27)
[2018-05-25] MEDS ORDERED: NALFON400 MG PO (08:29)
[2018-05-25] MEDS ORDERED: FLUTICASONE PRO16 GM NASAL (08:30)
[2018-05-25] MEDS ORDERED: FOLIC ACID1 MG PO (08:30)
[2018-05-25] MEDS ORDERED: FENOPROFEN CAL600 MG PO (08:30)
[2018-05-25] MEDS ORDERED: SYNTHROID50 MCG PO (08:31)
[2018-05-25] MEDS ORDERED: METHOTREXATE2.5 MG PO (08:33)
[2018-05-25] MEDS ORDERED: MIRALAX17 GM PO (08:33)
[2018-05-25] MEDS ORDERED: XELJANZ5 MG PO (08:34)
[2018-05-25 08:41] VITALS: BP 147/80; Ht 190.5 cm; Wt 136.4 kg
[2018-05-25 08:53] LABS: BASOPHILS 0.1 % (0-2); EOSINOPHILS 0.1 % (0-7); HEMATOCRIT 40.5 % (42.0-54.0); HEMOGLOBIN 14.1 g/dL (13.5-17.5); IMMATURE GRANULOCYTES 0.3 % (0-5); LYMPHOCYTES 13.2 % (15-50); MCH 32.6 pg (26.0-34.0); MCHC 34.8 g/dL (31.0-37.0); MCV 93.5 fL (80.0-100.0); MEAN PLATELET VOLUME 12.1 fL (7.4-10.4); MONOCYTES 5.5 % (2-11); NEUTROPHILS 80.8 % (40-80); PLATELET COUNT 145 10x3/uL (130-400); RBC 4.33 10x6/uL (4.20-6.10); RDW 13.8 % (11.5-14.5); WBC 10.2 10x3/uL (4.8-10.8)
[2018-05-25 08:56] LABS: CALC OSMOLALITY 281 mosm/kg (275-300); CALCIUM 8.3 mg/dL (8.5-10.1); CARBON DIOXIDE 25.9 mmol/L (21.0-32.0); CHLORIDE - SERUM 105 mmol/L (98-107); CREATININE - SERUM 0.9 mg/dL (0.6-1.3); GLUCOSE 97 mg/dL (74-106); POTASSIUM - SERUM 3.8 mmol/L (3.5-5.1); SODIUM 140 mmol/L (136-145); UREA NITROGEN 22 mg/dL (7-18); eGFR NON AFRICAN AMERICAN > 90 mL/min (90-120)
--- NOTE | 2018-05-25 10:19 | NUR ---
RIGHT GROIN DRESSING C/D/I. NO S/S OF HEMATOMA NOTED. RIGHT PEDAL PULSE PALPABLE. FAMILY AT BEDSIDE. VSS.
--- NOTE | 2018-05-25 10:46 | NUR ---
PT HAS CHRONIC BACK PAIN. REPOSITIONED FOR COMFORT. C/O PAIN 07/08 AT THIS TIME. ACHING. PAIN MEDICATION ORDERED. WILL GIVE SOON AVAILABLE.
--- NOTE | 2018-05-25 11:15 | NUR ---
PT RESTING COMFORTABLY. VSS. RIGHT GROIN DRESSING C/D/I. NO S/S OF HEMATOMA NOTED. NO OTHER NEEDS AT THIS TIME.
--- NOTE | 2018-05-25 11:40 | NUR ---
DR. CORNELIUS ROUNDED AND SPOKE WITH PT AND PT'S FAMILY. UPDATED THEM ON PT'S STATUS. PT REPORTS BACK PAIN IS IMPROVED. RATES IT 2/10 AT THIS TIME.
--- NOTE | 2018-05-25 12:20 | NUR ---
PT GIVEN SANDWICH TRAY. DENIES NAUSEA. RIGHT GROIN DRESSING C/D/I. NO S/S OF HEMATOMA NOTED. FAMILY AT BEDSIDE.
--- NOTE | 2018-05-25 13:05 | NUR ---
HEAD OF BED INC TO 30 DEGREES. RIGHT GROIN DRESSING C/D/I. NO S/S OF HEMATOMA NOTED.
--- NOTE | 2018-05-25 13:39 | NUR ---
LEFT FA PIV D/C'D WITH CATH TIP INTACT. PT TOLERATED WELL. INSTRUCTED TO GET UP AND DRESS SELF. RIGHT GROIN DRESSING C/D/I. NO S/S OF HEMATOMA NOTED.
--- NOTE | 2018-05-25 13:50 | NUR ---
DISCUSSED DISCHARGE INSTRUCTIONS WITH PT AND PT'S FAMILY. THEY VOICED UNDERSTANDING.
--- NOTE | 2018-05-25 13:58 | NUR ---
PT TAKEN OUT TO VEHICLE BY WHEELCHAIR. NO S/S OF DISTRESS NOTED. ALL BELONGINGS AND PAPERWORK IN HAND.
--- NOTE | 2018-05-27 15:03 | OP ---
PATIENT NAME: GLENIS MERRILL MEDICAL RECORD: [id number] :58 LOCATION:[facility] ADMISSION DATE: SURGEON: BHAVESH CORNELIUS MD DATE OF OPERATION: 05/25/2018 PROCEDURES: 1. PTCA stent LAD. 2. PTCA stent left circumflex. 3. Intravascular ultrasound of the LAD. 4. Intravascular ultrasound of left circumflex. 5. Selective coronary angiography. INDICATION: Angina and coronary artery disease. PROCEDURE IN DETAIL: After informed consent was obtained and after a detailed description of the risks, benefits as well as alternative therapies, the patient elected to proceed with angiogram and angioplasty. The right femoral area was prepped and draped in normal sterile fashion. Right femoral artery was cannulated via modified Seldinger technique with placement of 6-[place] sheath. All catheters exchanged through this sheath. FINDINGS: Left anterior descending has greater than 75% stenosis confirmed by intravascular ultrasound in the mid vessel. The left circumflex has greater than 75% stenosis confirmed by intravascular ultrasound in the mid vessel. The LAD was addressed with a 2.5 x 18 mm Integrity. The left circumflex with a 3.5 x 30 mm Integrity. Result was 0% residual stenosis. OVERALL IMPRESSION: Successful PTCA stent of the LAD and circumflex, both going from greater than 75% initial stenosis to 0% residual. TRANSINT:[id number] Voice Confirmation ID: [id number] DOCUMENT ID: [id number] BHAVESH CORNELIUS MD at 1503 CC: [id number] DICTATION DATE: 05/25/18 0956 SONOSCOPE OPERATOR: 05/25/18 1400 DEP CLI 05/25/18 [place] [id number]
--- NOTE | 2018-05-27 15:03 | HP ---
PATIENT: GLENIS ARTHUR MEDICAL RECORD: [id number] ACCOUNT: [id number] LOCATION:[facility] : 58 ADMISSION DATE: 05/25/18 PCP: JAMEE YOST MD HISTORY AND PHYSICAL EXAMINATION DIAGNOSES: 1. Angina. 2. Coronary artery disease. 3. Recent PTCA stent of the RCA with concomitant disease, LAD, and circumflex. 4. Hypertension. 5. Hyperlipidemia. HISTORY OF PRESENT ILLNESS: Mr. Arthur presents with anginal symptomatology, found to have 3-vessel coronary artery disease, underwent successful PTCA stent of the RCA. He is now brought back for intravascular ultrasound of the LAD and intervention of the circumflex, possible intervention of the LAD. PHYSICAL EXAMINATION: GENERAL APPEARANCE: Well-nourished, well-developed, appears stated age. Level of distress, comfortable. PSYCHIATRIC: Mental status, alert, normal affect. Orientation, oriented to time, place and person. EYES: Lids and conjunctiva, noninjected. No discharge, no pallor. ENT: Lips, teeth, gums, normal dentition. Oropharynx, no cyanosis, no pallor. NECK: Carotid arteries, bilateral normal upstroke, no bruits, no thrills. JUGULAR VEINS: No jugular venous pressure or distention. CERVICAL LYMPH NODES: Nontender, nonenlarged. THYROID: Not enlarged. Nontender. No nodules. LUNGS: Respiratory effort, unlabored. CHEST: Normal curvature. No thoracic deformity. No chest wall tenderness. Percussion, resonant. Auscultation, clear. No wheezes, no rales, no rhonchi. CARDIOVASCULAR: Precordial exam, nondisplaced. No heaves or pericardial thrills. Rate and rhythm, regular. Heart sounds, normal S1, normal S2. No S3, no gallop, no rub. Systolic murmur, not heard. Diastolic murmur, not heard. EXTREMITIES: No cyanosis, no edema. Peripheral pulses, full and equal in all extremities, except as noted. No bruits appreciated. ABDOMEN: Soft, nondistended. Normal aorta. No bruit. Nontender. No masses. Liver, nontender, no hepatomegaly. Spleen, nontender, no splenomegaly. MUSCULOSKELETAL: No joint tenderness. No joint swelling. No erythema. NEUROLOGICAL: Normal gait, normal strength, normal tone. SKIN: Warm and dry. OVERALL IMPRESSION: Anginal symptomatology with significant disease of the LAD and circumflex. We will proceed with intravascular ultrasound of the LAD and intervention of the circumflex, possibly LAD as well. TRANSINT:[id number] Voice Confirmation ID: [id number] DOCUMENT ID: [id number] HISTORY AND PHYSICAL [id number] GLENIS ARTHUR JEFFREY MD at 1503 CC: [id number] DICTATION DATE: 05/25/18 08 DATA REDUCTION TECHNICIAN: 05/25/18 0911 DEP CLI 05/25/18 [place] [address] [id number] [place] [address]
== END 2018-05-25 14:00 | disposition home or self-care (01) ==
LOC: D.CATH 07:56
PROVIDERS: ATTEND Internal Medicine Interventional Cardiology
DX: I25.119 Atherosclerotic heart disease of native coronary artery with unspecified angina pectoris (principal); Z01.812 Encounter for preprocedural laboratory examination